=== PATIENT | female | born 1995 ===

== ENCOUNTER 2021-11-18 11:17 | Day surgery (SDC) | payer OTHER ==
--- NOTE | 2021-11-17 23:19 | NUR ---
SE RECIBE PACIENTE PTE ALERTA Y ORIENTADO X3. REFIERE HABERSE CAIDO DE ESPALDA HACE 2, REFIERE DOLOR PELVICO Y SANGRADO VAGINAL ABUNDANTE Y COLOR BRIGGS SANGUINOLENTO. SE COLOCA PACIENTE EN PASILLO
[~2021-11-18] VITALS: Ht 154.9 cm; Wt 107.5 kg
--- NOTE | 2021-11-18 00:45 | NUR ---
SE EDUCA A PTE SOBRE [place] MEDICO ESTA REFIERE ENTENDER. SE ANAY MUESTRAS DE LABORATORIO UTILIZANDO MEDIDAS ASEPTICAS. SE NOTIFICA ESTUDIO DE SONOGRAFIA PENDIENTE A REALIZAR.
--- NOTE | 2021-11-18 06:50 | NUR ---
SE RECIBE PACIENTE DE TURNO ANTERIOR ALERTA Y ORIENTADA EN NOE CON BARANDAS ELEVADAS POR SEGURIDAD. PACIENTE CON VENOPUNCION PATENTE Y JEISON DE EDEMA BAJANDO 0.9NSS @100ML/HR. PTE PENDIENTE EKG Y CONSULTA CON DRA.MILDRED TORO.
--- NOTE | 2021-11-18 10:55 | NUR ---
PACIENTE ADMITIDA AL OR BAJO LOS SERVICIOS DE LA MALINI MEGAN TORO. SE LE ORIENTA A PACIENTE SOBRE EL PROCESO DE ENFERMERIA EN LA ADMISION Y LA MISMA VERBALIZA ENTENDER. PACIENTE PREVIAMENTE CANALIZA EN MANO DERECHA CON ANGIO #20 EL MISMO SE ENCUENTRA PATENTE, JEISON DE EDEMA Y ERITEMA. SE LE COLECTA MUESTRA DE COVID PENDIENTE, SE LE HACE ENTREGA DE VESTIMENTA DE LASHAY DE OPERACIONES SE LE ORIENTA SOBRE REMOVER PRENDAS. SE MANTIENE PACIENTE BAJO OBSERVACION POR CAMBIOS EN TX MEDICO Y ESPERA DE SER LLAMADA PARA OR.
[~2021-11-18 11:17] MED LIST: PRENA1 CHEW TA1.4 MG PO
== END 2021-11-18 18:20 | disposition home or self-care (01) ==
LOC: CIR.AMB 11:17 → SEC-K 11:17 → ER 11:17 → O/R 11:17 → SEC-K 12:03 → O/R 12:03 → EDSTATUS 13:00 → O/R 18:20 → CIR.AMB 18:20
PROVIDERS: ATTEND General Practice
DX: O02.1 Missed abortion (principal); Z20.822 Contact with and (suspected) exposure to COVID-19